=== PATIENT | female | born 1985 | race American Indian/Alaskan Native ===

== ENCOUNTER 2020-02-04 01:16 | Outpatient (CLI) | payer MEDICAID ==
--- NOTE | 2020-02-04 04:53 | Ultrasound Report ---
ULTRASOUND OBSTETRIC INDICATION / CLINICAL INFORMATION: no care, r/o labor. Clinical Gestational Age (GA): Unknown TECHNIQUE: Transabdominal. COMPARISON: None available. FINDINGS: There is a single intrauterine . Biparietal Diameter = 7.8 cm = 31 weeks, 2 day(s). Head Circumference = 29.0 cm = 32 weeks, 0 day(s). Abdominal Circumference = 27.0 cm = 31 weeks, 1 day(s). Femur Length = 6 cm = 31 weeks, 1 day(s). Average Ultrasound Age (AUA) = 31 weeks, 3 day(s). Heart Rate: 121 beats per minute. Estimated Weight in grams (if calculated): 3 lbs. 13 oz. (1725 g) Estimated Weight Growth Percentile (if calculated): Not calculated Position: cephalic. Cervix: closed. Length in cm (if measured): 3.8 Placenta: anterior and free of the os. Amniotic Fluid Volume: normal Amniotic Fluid Index (ISAAC) in cm (if calculated): 12.3 cm. Maternal Adnexa: No significant abnormality. Her graft no evidence for congenital anomaly at th is time. The stomach, kidneys, bladder, diaphragm, heart, cord, and cord insertion all appear g rossly unremarkable. There is limited evaluation of the spine and brain due to presentation and position. IMPRESSION: 1. Single, living intrauterine with estimated sonographic age of 31 weeks, 3 day(s). 2. No significant sonographic abnormality. Signer Name: Ana Quiles MD Signed: 02/04/2020 4:48 AM Workstation Name: [email or web address]
== END 2020-02-04 04:45 | disposition left against medical advice (07) ==
LOC: TRG 01:16
PROVIDERS: ATTEND Obstetrics & Gynecology
DX: O47.03 False labor before 37 completed weeks of gestation, third trimester (principal); Z3A.31 31 weeks gestation of pregnancy
CPT/HCPCS: 76805

== ENCOUNTER 2020-02-20 23:00 | Outpatient (CLI) | payer MEDICAID ==
[2020-02-21 00:26] VITALS: BP 116/57
[2020-02-21] MEDS ORDERED: LACTATED RINGERS 500 ML IV ONE (01:40)
--- NOTE | 2020-02-21 02:34 | Ultrasound Report ---
ULTRASOUND BIOPHYSICAL PROFILE INDICATION / CLINICAL INFORMATION: well-being. COMPARISON: 02/04/20. FINDINGS: BREATHING MOVEMENT = 2 GROSS BODY MOVEMENT = 2 TONE = 2 QUALITATIVE AMNIOTIC FLUID VOLUME = 2 TOTAL BIOPHYSICAL SCORE = 8/8 AMNIOTIC FLUID = Deepest vertical pocket measures 2.4 cm. PRESENTATION: Cephalic. HEART RATE (beats per minute): 120 IMPRESSION: biophysical profile = 07/03 Signer Name: Laurent Osborne MD Signed: 02/21/2020 2:30 AM Workstation Name: [email or web address]
== END 2020-02-21 03:00 | disposition left against medical advice (07) ==
LOC: TRG 23:00
PROVIDERS: ATTEND Obstetrics & Gynecology
DX: O47.03 False labor before 37 completed weeks of gestation, third trimester (principal); Z3A.33 33 weeks gestation of pregnancy
CPT/HCPCS: 76819